=== PATIENT | male | born 1980 | race Caucasian/White ===

== ENCOUNTER 2017-01-23 08:00 | Outpatient (CLI) | payer BC ==
[2017-01-23 18:55] LABS: BASOPHILS % (AUTO) 0.6 %; EOSINOPHILS # (AUTO) 0.2 10^3/uL (0.0-0.7); EOSINOPHILS % (AUTO) 2.4 %; HCT - HEMATOCRIT 43.8 % (42.0-52.0); LYMPHOCYTES # (AUTO) 1.9 10^3/uL (1.5-3.5); LYMPHOCYTES % (AUTO) 30.5 %; MEAN CORPUSCULAR HEMOGLOBIN 29.4 pg (27.0-31.0); MEAN CORPUSCULAR HGB CONC 34.2 g/dL (32.0-36.0); MEAN CORPUSCULAR VOLUME 85.9 fL (80.0-94.0); MEAN PLATELET VOLUME 8.1 fL (7.4-11.4); MONOCYTES # (AUTO) 0.4 10^3/uL (0.0-1.0); NEUTROPHILS # (AUTO) 3.7 10^3/uL (1.5-6.6); NEUTROPHILS % (AUTO) 59.5 %; NUCLEATED RED BLOOD CELLS AUTO 0.1 /100WBC; RED CELL DISTRIBUTION WIDTH 12.8 % (12.0-15.0); UNCORRECTED WHITE BLOOD COUNT 6.3 x10^3/uL; WHITE BLOOD COUNT 6.3 x10^3/uL (4.8-10.8)
[2017-01-23 19:24] LABS: ALBUMIN/GLOBULIN RATIO 1.6 (1.0-2.2); BILIRUBIN,TOTAL 1.1 mg/dL (0.2-1.0); BUN - BLOOD UREA NITROGEN 18 mg/dL (6-20); CALCIUM 9.5 mg/dL (8.5-10.3); CARBON DIOXIDE - CO2 25 mmol/L (21-32); CHLORIDE 104 mmol/L (101-111); CHOL/HDL RATIO 3.2 (<5.0); CHOLESTEROL 205 mg/dL; CREATININE 1.1 mg/dL (0.6-1.2); GFR - MDRD 75 (>89); GLUCOSE 100 mg/dL (70-100); HDL CHOLESTEROL 64 mg/dL; LDL/HDL RATIO 1.8 (<3.6); SODIUM 135 mmol/L (135-145); TOTAL PROTEIN 7.7 g/dL (6.7-8.2); TRIGLYCERIDES 134 mg/dL; VLDL CHOLESTEROL 27 mg/dL
== END 2017-01-23 08:01 | disposition home or self-care (01) ==
LOC: LAB.F 08:00
PROVIDERS: ATTEND Family Medicine
DX: Z00.00 Encounter for general adult medical examination without abnormal findings (principal); Z51.81 Encounter for therapeutic drug level monitoring; E78.5 Hyperlipidemia, unspecified
CPT/HCPCS: 36415; 80053; 80061; 84443; 85025

== ENCOUNTER 2018-04-11 08:00 | Outpatient (CLI) | payer BC ==
[2018-04-11 17:50] LABS: BASOPHILS % (AUTO) 0.7 %; EOSINOPHILS # (AUTO) 0.1 10^3/uL (0.0-0.7); EOSINOPHILS % (AUTO) 1.5 %; HGB - HEMOGLOBIN 14.9 g/dL (14.0-18.0); LYMPHOCYTES # (AUTO) 1.9 10^3/uL (1.5-3.5); MEAN CORPUSCULAR HGB CONC 34.7 g/dL (32.0-36.0); MEAN CORPUSCULAR VOLUME 86.7 fL (80.0-94.0); MEAN PLATELET VOLUME 7.5 fL (7.4-11.4); MONOCYTES # (AUTO) 0.5 10^3/uL (0.0-1.0); MONOCYTES % (AUTO) 9.2 %; NEUTROPHILS # (AUTO) 3.4 10^3/uL (1.5-6.6); NEUTROPHILS % (AUTO) 56.6 %; PLT - PLATELET COUNT 285 10^3/uL (130-450); RED BLOOD COUNT 4.95 10^6/uL (4.70-6.10); RED CELL DISTRIBUTION WIDTH 13.4 % (12.0-15.0); WHITE BLOOD COUNT 5.9 x10^3/uL (4.8-10.8)
[2018-04-11 18:07] LABS: ALBUMIN 4.3 g/dL (3.2-5.5); ALBUMIN/GLOBULIN RATIO 1.2 (1.0-2.2); ALKALINE PHOSPHATASE 53 IU/L (42-121); ALT ALANINE AMINOTRANSFERASE 47 IU/L (10-60); AST ASPARTATE AMINOTRANSFERASE 29 IU/L (10-42); BUN - BLOOD UREA NITROGEN 23 mg/dL (6-20); CALCIUM 9.5 mg/dL (8.5-10.3); CARBON DIOXIDE - CO2 26 mmol/L (21-32); CHLORIDE 100 mmol/L (101-111); CHOL/HDL RATIO 3.4 (<5.0); CHOLESTEROL 234 mg/dL; GFR - MDRD 84 (>89); GLUCOSE 122 mg/dL (70-100); HDL CHOLESTEROL 68 mg/dL; LDL CHOLESTEROL,CALCULATED 139 mg/dL; SODIUM 137 mmol/L (135-145); TOTAL PROTEIN 7.8 g/dL (6.7-8.2); VLDL CHOLESTEROL 27 mg/dL
== END 2018-04-11 23:59 | disposition home or self-care (01) ==
LOC: LAB.F 08:00
PROVIDERS: ATTEND Family Medicine
DX: Z00.00 Encounter for general adult medical examination without abnormal findings (principal); Z51.81 Encounter for therapeutic drug level monitoring; R94.5 Abnormal results of liver function studies; E78.5 Hyperlipidemia, unspecified; Z79.899 Other long term (current) drug therapy
CPT/HCPCS: 36415; 80053; 80061; 83721; 85025

== ENCOUNTER 2019-10-01 15:18 | Outpatient (CLI) | payer BC ==
[2019-10-01 19:53] LABS: BASOPHILS % (AUTO) 0.8 %; EOSINOPHILS # (AUTO) 0.1 10^3/uL (0.0-0.7); EOSINOPHILS % (AUTO) 2.1 %; HGB - HEMOGLOBIN 16.5 g/dL (14.0-18.0); LYMPHOCYTES # (AUTO) 1.7 10^3/uL (1.5-3.5); LYMPHOCYTES % (AUTO) 32.6 %; MEAN CORPUSCULAR HGB CONC 33.7 g/dL (32.0-36.0); MEAN CORPUSCULAR VOLUME 88.9 fL (80.0-94.0); MEAN PLATELET VOLUME 10.1 fL (7.4-11.4); MONOCYTES # (AUTO) 0.5 10^3/uL (0.0-1.0); MONOCYTES % (AUTO) 8.5 %; NEUTROPHILS % (AUTO) 55.6 %; PLT - PLATELET COUNT 240 10^3/uL (130-450); RED CELL DISTRIBUTION WIDTH 12.3 % (12.0-15.0); WHITE BLOOD COUNT 5.3 x10^3/uL (4.8-10.8)
[2019-10-01 20:12] LABS: ALBUMIN 4.8 g/dL (3.2-5.5); ALBUMIN/GLOBULIN RATIO 1.4 (1.0-2.2); ALKALINE PHOSPHATASE 47 IU/L (42-121); ALT ALANINE AMINOTRANSFERASE 100 IU/L (10-60); AST ASPARTATE AMINOTRANSFERASE 49 IU/L (10-42); BILIRUBIN,TOTAL 1.1 mg/dL (0.2-1.0); BUN - BLOOD UREA NITROGEN 19 mg/dL (6-20); CALCIUM 9.8 mg/dL (8.5-10.3); CARBON DIOXIDE - CO2 22 mmol/L (21-32); CHLORIDE 105 mmol/L (101-111); CHOLESTEROL 294 mg/dL; GLUCOSE 115 mg/dL (70-100); HDL CHOLESTEROL 74 mg/dL; LDL CHOLESTEROL,CALCULATED 171 mg/dL; LDL/HDL RATIO 2.3 (<3.6); SODIUM 137 mmol/L (135-145); TOTAL PROTEIN 8.2 g/dL (6.7-8.2); URIC ACID 8.5 mg/dL (2.6-7.2); VLDL CHOLESTEROL 49 mg/dL
== END 2019-10-01 15:19 | disposition home or self-care (01) ==
LOC: LAB.S 15:18
PROVIDERS: ATTEND Physician Assistant
DX: I10 Essential (primary) hypertension (principal); E78.5 Hyperlipidemia, unspecified; M10.9 Gout, unspecified
CPT/HCPCS: 36415; 80053; 80061; 83721; 84550; 85025

== ENCOUNTER 2023-10-17 15:35 | Emergency (ER) | payer BC ==
[2023-10-17 16:33] LABS: BASOPHILS # (AUTO) 0.1 10^3/uL (0.0-0.1); BASOPHILS % (AUTO) 0.7 %; EOSINOPHILS # (AUTO) 0.1 10^3/uL (0.0-0.7); EOSINOPHILS % (AUTO) 0.7 %; HCT - HEMATOCRIT 47.6 % (42.0-52.0); HGB - HEMOGLOBIN 16.1 g/dL (14.0-18.0); LYMPHOCYTES # (AUTO) 1.6 10^3/uL (1.5-3.5); LYMPHOCYTES % (AUTO) 19.9 %; MEAN CORPUSCULAR HEMOGLOBIN 29.8 pg (27.0-31.0); MEAN CORPUSCULAR HGB CONC 33.8 g/dL (32.0-36.0); MEAN CORPUSCULAR VOLUME 88.1 fL (80.0-94.0); MEAN PLATELET VOLUME 8.7 fL (7.4-11.4); MONOCYTES # (AUTO) 0.7 10^3/uL (0.0-1.0); MONOCYTES % (AUTO) 8.1 %; NEUTROPHILS # (AUTO) 5.7 10^3/uL (1.5-6.6); NEUTROPHILS % (AUTO) 70.4 %; PLT - PLATELET COUNT 211 10^3/uL (130-450); RED CELL DISTRIBUTION WIDTH 12.5 % (12.0-15.0)
[2023-10-17 16:53] LABS: ALBUMIN 4.7 g/dL (3.2-5.5); ALBUMIN/GLOBULIN RATIO 1.4 (1.0-2.2); BILIRUBIN,TOTAL 0.5 mg/dL (0.2-1.0); CALCIUM 9.3 mg/dL (8.5-10.3); CREATININE 0.9 mg/dL (0.6-1.3); ETOH - ETHANOL 279.6 mg/dL; POTASSIUM 3.9 mmol/L (3.5-4.5); TOTAL PROTEIN 8.1 g/dL (6.4-8.9)
[2023-10-17] MEDS: SODIUM CHLORIDE 0.9% 1,000 ML IV STA (17:21)
[2023-10-17 17:26] LABS: AMPHETAMINE SCREEN,URINE NEGATIVE (NEGATIVE); BARBITURATE SCREEN,UR NEGATIVE (NEGATIVE); BENZODIAZEPINES SCREEN, URINE NEGATIVE (NEGATIVE); BUPRENORPHINE SCREEN, URINE NEGATIVE (NEGATIVE); COCAINE SCREEN URINE NEGATIVE (NEGATIVE); METHADONE SCREEN, URINE NEGATIVE (NEGATIVE); METHAMPHETAMINES SCREEN, URINE NEGATIVE (NEGATIVE); OPIATE SCREEN, URINE NEGATIVE (NEGATIVE); OXYCODONE SCREEN, URINE NEGATIVE (NEGATIVE); THC CANNABINOID SCREEN, URINE NEGATIVE (NEGATIVE); TRICYCLIC ANTIDEPRESSANT,URINE NEGATIVE (NEGATIVE)
--- NOTE | 2023-10-17 17:55 | ED Physician Documentation ---
History of Present Illness - Stated complaint Stated Complaint: DETOX - Chief complaint Chief Complaint: General - Additonal information Additional information: Patient is a 42-year-old male presenting to the emergency department with history of alcohol abuse. He notes he has been drinking for multiple months unable to specify exactly how many years he has been drinking. He notes no history of seizures with withdrawals. He notes a few months ago he tried to quit drinking and when he did he had severe hallucinations and so he began drinking again. Patient is presenting here to the emergency department for help with stopping drinking alcohol. He used to generally drinks about 12 beers a day. He notes he drank about 6 prior to coming in last drink was about 2 hours prior to arrival. He denies any tremors he notes some mild anxiety at this time but no hallucinations no vision changes no shaking at this time.Patient denies any other substance abuse. He has a history of anxiety but no other past medical history. He denies any suicidal or homicidal ideation today. He denies taking any other medications at this time. He notes in the past he tried Ativan once but was never inpatient for withdrawal symptoms. He denies ever being admitted to the ICU or having seizures with withdrawals. PD PAST MEDICAL HISTORY - Past Medical History Past Medical History: Yes Cardiovascular: Hypertension Psych: Depression, Anxiety - Past Surgical History Past Surgical History: No - Present Medications Home Medications: Ambulatory Orders Medication Instructions Recorded Confirmed Metoprolol Succinate 100 mg PO DAILY 10/17/23 10/17/23 Sertraline HCl 100 mg PO DAILY 10/17/23 10/17/23 allopurinoL [Zyloprim] 100 mg PO DAILY 10/17/23 10/17/23 - Allergies Allergies/Adverse Reactions: Allergies Allergy/AdvReac Type Severity Reaction Status Date / Time No Known Drug Allergies Allergy Verified 10/17/23 15:57 - Social History Does the pt smoke?: No Smoking Status: Never smoker Does the pt drink ETOH?: Yes ETOH Use: Other Does the pt have substance abuse?: No - Immunizations Immunizations are current?: Yes - POLST Patient has POLST: No PD ED PE NORMAL - Vitals Vital signs reviewed: Yes - General General: Alert and oriented X 3 - HEENT HEENT: Atraumatic - Neck Neck: Supple, no meningeal sign - Cardiac Cardiac: RRR, No murmur, No gallop, No rub - Respiratory Respiratory: No respiratory distress, Clear bilaterally - Abdomen Abdomen: Normal bowel sounds - Male Male : Deferred - Rectal Rectal: Deferred - Derm Derm: Normal color, Warm and dry, No rash, Other (No appreciable bruising) - Extremities Extremities: No deformity, Normal ROM s pain - Neuro Neuro: Alert and oriented X 3, No motor deficit, Normal speech (No significant slurring of words notes as slurry deficit cranial nerves II through XII intact with stable gait on ambulation at this time.) Eye Opening: Spontaneous Motor: Obeys Commands Verbal: Oriented GCS Score: 15 Results - Vitals Vitals: Vital Signs - 24 hr 10/17/23 10/17/23 10/17/23 15:57 17:14 19:00 Temperature 36.8 C Heart Rate 83 80 74 Respiratory 16 16 16 Rate Blood Pressure 170/100 H 145/86 H 150/88 H O2 Saturation 98 94 96 Oxygen O2 Source Room air - Labs Labs: Laboratory Tests 10/17/23 10/17/23 10/17/23 16:27 16:27 17:05 WBC 8.0 RBC 5.40 Hgb 16.1 Hct 47.6 MCV 88.1 MCH 29.8 MCHC 33.8 RDW 12.5 Plt Count 211 MPV 8.7 Neut # (Auto) 5.7 Lymph # (Auto) 1.6 Hooker # (Auto) 0.7 Eos # (Auto) 0.1 Baso # (Auto) 0.1 Absolute Nucleated RBC 0.00 Nucleated RBC % 0.0 Sodium 135 Potassium 3.9 Chloride 103 Carbon Dioxide 21 Anion Gap 11.0 BUN 5 L Creatinine 0.9 Estimated GFR (MDRD) 92 Glucose 141 H Calcium 9.3 Total Bilirubin 0.5 AST 57 H ALT 92 H Alkaline Phosphatase 66 Total Protein 8.1 Albumin 4.7 Globulin 3.4 Albumin/Globulin Ratio 1.4 Lipase 15 Urine Opiates Screen NEGATIVE Ur Buprenorphine Scrn NEGATIVE Ur Oxycodone Screen NEGATIVE Urine Methadone Screen NEGATIVE Ur Barbiturates Screen NEGATIVE Ur Tricyclics Screen NEGATIVE Ur Phencyclidine Scrn NEGATIVE Ur Amphetamine Screen NEGATIVE U Methamphetamines Scrn NEGATIVE U Benzodiazepines Scrn NEGATIVE Urine Cocaine Screen NEGATIVE U Cannabinoids Screen NEGATIVE Ur Drug Screen Comment CUTOFF CONC BELOW: Ethyl Alcohol 279.6 PD Medical Decision Making - ED course Complexity details: reviewed old records, reviewed results ED course: Patient is a 42-year-old male presenting to the emergency department with history of alcohol abuse. He notes he drinks about 12 beers a day. He is presenting to the ED for request with helping with stopping drinking alcohol. He notes he is concerned for withdrawal symptoms. He tried to stop drinking back in August and at the time developed hallucinations and had to begin drinking again. Patient denies any history of seizures no history of hospital or ICU admission with withdrawals. Patient unable to recall last time he tried to stop drinking other than a few months ago in August. He denies any nausea or vomiting at this time. Last drink was 2 hours prior to arrival. Patient on arrival appears acutely intoxicated he is able to answer questions GCS of 15 ANO x 3 though. Patient shows no signs of focal neurodeficit and has stable gait on ambulation. Labs here in the emergency department show blood alcohol level of 279.6. This is consistent with patient drinking recently. Patient was given 1 L of fluids here in emergency department. Labs do show elevation in AST and ALT but these are consistent with mild elevation most likely secondary to alcohol use. Labs here in the emergency department are also reassuring for no significant leukocytosis. Hemoglobin is stable. No significant electrolyte abnormality. Creatinine level is stable and urine drug screen is negative. Patient most likely still acutely intoxicated here in the ED at this time, no other concerning findings. Patient can be transferred to inpatient facility as he is willing to be admitted for further treatment. Prior to patient being transferred or ensuring paperwork is sent to inpatient detox facility he left prior to disposition from the emergency department. On discharge patient had been evaluated shortly prior to he was ANO x 3 in no acute distress willing to make his own decisions. Patient was called by nursing staff and officers were called to ensure patient did not have IV in place. Patient was called and reported he had IV removed and he made at home by the time ER nurses were able to get a hold of him. Patient declines wanting treatment at this time. Patient left prior to disposition and I did not get to speak to him prior to him leaving. Departure - Departure Disposition: Left Prior to Disposition Clinical Impression: Alcohol abuse, Acute alcohol intoxication Condition: Good Instructions: ED Alcohol Intoxication Forms: PCP List Discharge Date/Time: 10/17/23 20:44
[2023-10-17] MEDS: THIAMINE INJ 100 MG, FOLIC ACID INJ 1 MG in SODIUM CHLORIDE 0.9% 1,000 ML IV STA (18:25)
[2023-10-17 19:26] VITALS: BP 150/88; O2SAT 96
== END 2023-10-17 20:44 | disposition home or self-care (01) ==
LOC: ED 15:35
DX: F10.129 Alcohol abuse with intoxication, unspecified (principal); Y90.8 Blood alcohol level of 240 mg/100 ml or more; I10 Essential (primary) hypertension; F32.A Depression, unspecified; F41.9 Anxiety disorder, unspecified; Z79.899 Other long term (current) drug therapy
CPT/HCPCS: 36415; 80053; 80306; 82077; 83690; 85025; 96374; 99284; J3411